=== PATIENT | male | born 1995 | race Caucasian/White ===

== ENCOUNTER 2019-05-05 07:37 | Emergency (ER) | payer OTHER, SELFPAY ==
[2019-05-05 07:38] VITALS: BP 163/88; PULSE 89; RESP 16; TEMP 36; O2SAT 97; BMI 32.3
--- NOTE | 2019-05-05 07:53 | RAD_ITS ---
STUDY: X-RAY - LEFT ANKLE REASON FOR EXAM: Male, 24 years old. Twisting injury. TECHNIQUE: 3 view(s) of the ankle. COMPARISON: None. FINDINGS: Normal visualized distal tibia and fibula. Normal medial and lateral malleoli. Normal tibiotalar articulation and ankle mortise. Normal visualized talus and calcaneus. The visualized subtalar, talonavicular, calcaneocuboid and tarsal articulations are normal. Soft tissue swelling. Small joint effusion. RAD/Ankle min 3 Views IMPRESSION: Soft tissue swelling and small joint effusion. Electronically Signed: Ulises Schrader, at 8:20 EDT , Service support ,
--- NOTE | 2019-05-05 07:53 | ED.VIS.GEN ---
History of Present Illness Chief Complaint: Lower Extremity Injury Detail of Chief Complaint: Left ankle Informant: Patient Onset: Hours Context: Sudden Onset Timing: Continuous Quality: Pain Location: Left ankle Current Severity: Mild Maximum Severity: Severe Worsened by: Movement and weightbearing Relieved by: Nothing Associated Symptoms: Tingling Narrative: Patient is a 24-year-old male who presents with plantar inversion mechanism injury left ankle. He states he sprained his ankle several weeks ago. He states he stepped off of a dog house . He complains of pain predominantly lateral side of the left ankle. He also combines of tingling. He denies knee pain. He denies pain in his foot or toes. Prior similar symptoms: Yes Recent Illness/Hospitalization: Yes - Past Medical History (1) No significant past medical history Status: Acute Past Medical History - Allergies and Home Meds Allergies/Adverse Reactions: Allergies No Known Allergies Allergy (Verified 05/05/19 07:38) Past Medical History: None Surgical History: no surgical history Lives: Alone Alcohol: Rare Drugs: None Review of Systems Musculoskeletal: Reports: Swelling, Extremity Pain. Denies: Myalgias, Arthralgias, Neck pain, Back pain Skin: Denies: Rash, Abscess, Abrasions, Wounds Neurological: Reports: Parasthesia. Denies: Weakness, Numbness Hematologic: Denies: Easy bruising, Easy bleeding Physical Exam Vital Signs/Narrative: Vital Signs Temp Pulse Resp BP Pulse Ox 05/05/19 07:38 96.8 F L 89 16 163/88 H 97 Inital Vital Signs reviewed: Yes General: Well nourished, Well developed, Obese, No Acute Distress Head: Normocephalic, Atraumatic Eyes: Perrl, EOMI. Negative for: Pale conjunctiva, Scleral icterus Cardiovascular: Regular rate, Regular rhythm Respiratory: No distress Extremities: No edema, Tenderness - Patient distal 4 cm of the lateral malleolus. There is no pain the patient over the medial malleolus. There is no pain the patient base of fifth metatarsal. There is no lacks with drawer testing. DP and PT pulses are palpable. Skin: Normal color, No rash, Trauma - Soft tissue swelling with discoloration over the lateral malleolus Neurological: Alert, Oriented x3, Cranial nerves II-XII grossly intact, Normal Strength, Normal Sensation. Negative for: Normal Gait Psychological: Normal affect, Normal Mood Diagnostic/Tx/Re-eval Chest X-Ray - ED: Read by ED Physician, - - Three-view x-ray of the left ankle was obtained and reveals soft tissue swelling over the lateral malleolus. There is no evidence of fracture. There is no widening of the mortise. There is no effusion noted. The x-ray is unremarkable other than soft tissue swelling consistent with an ankle sprain 05/05/19 07:53 Ankle min 3 Views [RAD] Stat - Medical Decision Making She was offered pain medicine. He declined. Three-view x-ray of the left ankle was obtained to assess for fracture versus sprain. ED Disposition - Plan for ED Patient: Disposition: Home or Assisted Living Diagnosis: Sprain of anterior talofibular ligament of left ankle Instructions: Sprain, Ankle, with X-Ray Referrals: Antione Suazo III, MD [Primary Care Provider] - [facility] OF PHYSICIANS] - 3-5 Days if not improving Additional Instructions: Rest ankle as much as possible. Elevate and apply ice 6 times a day for 20 to 30 minutes per application. Avoid going up or down ladders, steep inclines. Recommend drawing alphabet with left foot 3-4 times a day. Take either 4 ibuprofen tablets every 8 hours or 2 Aleve tablets every 12 hours for pain. You may have pain for 1 to 2 weeks. Do not run or go up steps quickly or inclines until pain-free.
[2019-05-05 08:48] VITALS: BP 132/84; PULSE 84; RESP 18
== END 2019-05-05 08:50 | disposition home or self-care (01) ==
PROVIDERS: Emergency Provider Emergency Medicine; Family Provider Family Medicine; PCP Family Medicine
DX: S93.492A Sprain of other ligament of left ankle, initial encounter (principal); X50.1XXA Overexertion from prolonged static or awkward postures, initial encounter; Y93.89 Activity, other specified
CPT/HCPCS: 73610; 99282